=== PATIENT | female | born 1955 | race Caucasian/White ===

== ENCOUNTER 2022-11-05 11:06 | Outpatient (REF) | payer OTHER, SELFPAY ==
[2022-11-05 13:09] LABS: Bilirubin Negative (Negative); Blood Negative (Negative); Clarity Clear (Clear); Glucose Negative (Negative); Ketones Negative (Negative); Leukocyte Esterase Small (Negative); Nitrite Negative (Negative); Urobilinogen 0.2 EU/dL (Up TO 0.2)
[2022-11-05 13:25] LABS: Bacteria Few HPF (Negative); C & S Indicated? Yes; Casts Negative LPF (Negative); Crystals Negative HPF (Negative); Epithelial Cells Rare HPF (Negative); Mucus Negative (Negative); RBC 0-2 HPF (0-2)
== END 2022-11-05 11:07 | disposition home or self-care (01) ==
LOC: LBN 11:06
PROVIDERS: Visit Provider Physician Assistant
DX: R39.9 Unspecified symptoms and signs involving the genitourinary system (principal)
CPT/HCPCS: 87077; 81003; 81015; 87086; 87186

== ENCOUNTER 2025-08-16 10:48 | Outpatient (REF) | payer OTHER, SELFPAY ==
[2025-08-16 15:55] LABS: Glucose Negative (Negative)
[2025-08-16 16:13] LABS: C & S Indicated? Yes; WBC 20-50 HPF (0-5)
== END 2025-08-16 10:49 | disposition home or self-care (01) ==
LOC: LBN 10:48
PROVIDERS: Visit Provider Nurse Practitioner Family
DX: R39.9 Unspecified symptoms and signs involving the genitourinary system (principal)
CPT/HCPCS: 81003; 81015; 87086